=== PATIENT | female | born 1955 | race Caucasian/White ===

== ENCOUNTER 2018-02-20 12:49 | Emergency (ER) | payer OTHER ==
[2018-02-20 14:20] LABS: ADD MAN DIFF? NO
[2018-02-20 14:24] LABS: BASO % 0 % (0-3); BILIRUBIN,URINE NEGATIVE (NEG); CLARITY,URINE CLEAR; COLOR,URINE YELLOW; EOS # 0.1 x10^3/uL (0.0-0.7); EOS % 1 % (0-3); GLUCOSE,URINE NEGATIVE (NEG); HEMATOCRIT 48.8 % (36.0-47.0); HEMOGLOBIN 16.5 g/dL (12.0-15.5); LYMPH # 1.5 x10^3/uL (1.0-4.8); LYMPH % 21 % (24-48); MEAN CORPUSCULAR HEMOGLOBIN 29 pg (25-35); MEAN CORPUSCULAR HGB CONC 34 g/dL (31-37); MEAN CORPUSCULAR VOLUME 87 fL (79-100); MONO # 0.5 x10^3/uL (0.0-1.1); MONO % 7 % (0-9); NEUT # 5.2 x10^3uL (1.8-7.7); NEUT % 71 % (31-73); NITRITE,URINE NEGATIVE (NEG); PH,URINE 6.5; PLATELET COUNT 182 x10^3/uL (140-400); PROTEIN,URINE NEGATIVE (NEG-TRACE); RED BLOOD COUNT 5.62 x10^6/uL (3.50-5.40); RED CELL DISTRIBUTION WIDTH 14.1 % (11.5-14.5); UROBILINOGEN,URINE 0.2 mg/dL (0.2 mg/dL); WHITE BLOOD COUNT 7.3 x10^3/uL (4.0-11.0)
[2018-02-20 14:39] LABS: BACTERIA,URINE FEW /HPF (0-FEW); RBC,URINE 0 /HPF (0-2); SQUAMOUS EPITHELIAL CELL,UR FEW /LPF
[2018-02-20 14:48] LABS: ANION GAP 8 (6-14); BLOOD UREA NITROGEN 12 mg/dL (7-20); BUN/CREATININE RATIO 20 (6-20); CALCIUM 8.7 mg/dL (8.5-10.1); CARBON DIOXIDE 28 mmol/L (21-32); CHLORIDE 105 mmol/L (98-107); CREATININE 0.6 mg/dL (0.6-1.0); GFR 100.3; GLUCOSE 111 mg/dL (70-99); POTASSIUM 4.5 mmol/L (3.5-5.1); SODIUM 141 mmol/L (136-145)
[2018-02-20 14:53] LABS: ALBUMIN 3.5 g/dL (3.4-5.0); ALK PHOS 112 U/L (46-116); ALT (SGPT) 29 U/L (14-59); AST (SGOT) 32 U/L (15-37); TOTAL BILIRUBIN 1.5 mg/dL (0.2-1.0); TOTAL PROTEIN 6.9 g/dL (6.4-8.2)
[2018-02-20 14:54] LABS: NT-PRO BNP 102 pg/mL (0-124)
== END 2018-02-20 16:05 | disposition home or self-care (01) ==
LOC: ER 12:49
DX: I10 Essential (primary) hypertension (principal); Z88.0 Allergy status to penicillin; Z88.5 Allergy status to narcotic agent; Z88.8 Allergy status to other drugs, medicaments and biological substances
CPT/HCPCS: 36415; 71046; 80053; 81001; 83880; 85025; 87086; 93005; 99285-25